=== PATIENT | female | born 1975 | race Two or more races ===

== ENCOUNTER 2017-04-14 01:04 | Emergency (ER) | payer OTHER ==
[~2017-04-14] VITALS: Ht 157.5 cm; Wt 71.3 kg
[2017-04-14 01:39] LABS: HCG UR LOT HCG7030192
[2017-04-14 01:50] LABS: HCG UR OBC PASS
[2017-04-14 03:37] LABS: HEMATOCRIT 39.1 % (34.6-47.8); HEMOGLOBIN 13.7 g/dL (11.7-16.4); WHITE BLOOD COUNT 10.9 x10^3/uL (3.4-10)
[2017-04-14 03:40] LABS: ASPARTATE AMINO TRANSFERASE 15 U/L (15-37); BLOOD UREA NITROGEN 7 mg/dL (7-18)
[2017-04-14 04:28] VITALS: BP 104/55
== END 2017-04-14 04:32 | disposition home or self-care (01) ==
LOC: ED 04:26
DX: K29.00 Acute gastritis without bleeding (principal)
CPT/HCPCS: 36415; 76700; 80053; 81001; 81025; 83690; 85025; 87086; 99285